=== PATIENT | male | born 1960 ===

== ENCOUNTER 2022-08-06 14:22 | Observation (INO) | payer BC ==
[2022-08-06] MEDS: Iopamidol 755 MG/ML 500 ML Multipack Bottle IVPUSH ONE (14:50)
[2022-08-06 15:09] LABS: BLOOD UREA NITROGEN,BUN 19 mg/dL (7.0-18.0); CARBON DIOXIDE,CO2 22.8 mmol/L (21.0-32.0); CHLORIDE,CL 105 mmol/L (98-107); GLUCOSE RANDOM 95 mg/dL (74-106); POTASSIUM,K 3.5 mmol/L (3.5-5.1); SODIUM,NA 139 mmol/L (136-148)
[2022-08-06 15:18] LABS: ESTIMATED GFR 76 mL/min (>60)
[2022-08-06] MEDS: Aspirin 81 MG Tab.Chew PO ONE (15:44)
[2022-08-06 16:14] LABS: HEMOGLOBIN A1C 5.4 %
[2022-08-06] MEDS ORDERED: Ondansetron 4 MG/2 ML SDV IVPUSH PRN (16:41)
[2022-08-06] MEDS ORDERED: Sodium Chloride 0.9% 2.5 ML Syringe FLUSH PRN (16:41)
[2022-08-06] MEDS ORDERED: Sodium Chloride 0.9% 10 ML Syringe FLUSH PRN (16:41)
[2022-08-06] MEDS ORDERED: Acetaminophen 325 MG Tab PO PRN (16:41)
[2022-08-06] MEDS ORDERED: Labetalol 100 MG/20 ML MDV IVPUSH PRN (16:46)
[2022-08-06] MEDS: atorvaSTATin 40 MG Tab PO SCH (21:00)
[2022-08-07 06:35] LABS: CARBON DIOXIDE,CO2 24.3 mmol/L (21.0-32.0); POTASSIUM,K 3.8 mmol/L (3.5-5.1)
[2022-08-07] MEDS: Gadobenate Dimeglumine 529 MG/ML 20 ML SDV IVPUSH STA (09:22)
[2022-08-07] MEDS: Clopidogrel 75 MG Tab PO SCH (09:33)
[2022-08-07] MEDS: Aspirin 81 MG Tab.Chew PO SCH (09:33)
== END 2022-08-07 14:50 | disposition home or self-care (01) ==
LOC: MW.ED 14:22 → MW.MS 16:37
PROVIDERS: ADMIT Internal Medicine; ATTEND Internal Medicine
DX: I63.9 Cerebral infarction, unspecified (principal); R20.0 Anesthesia of skin; G45.9 Transient cerebral ischemic attack, unspecified; K21.9 Gastro-esophageal reflux disease without esophagitis; G47.30 Sleep apnea, unspecified; F17.200 Nicotine dependence, unspecified, uncomplicated; Z79.899 Other long term (current) drug therapy; Z79.82 Long term (current) use of aspirin; Z20.822 Contact with and (suspected) exposure to COVID-19; Z79.01 Long term (current) use of anticoagulants
CPT/HCPCS: 36415; 70450; 70450-26; 70496; 70496-26; 70498; 70498-26; 70553; 70553-26; 80048; 80053; 80061; 82947; 83036; 83735; 84443; 84484; 85025; 85610; 85730; 93005; 96374; 97161-GP; 97166-GO; 99284-25; A9270-GY; A9577; G0378; Q9967; U0002